=== PATIENT | male | born 1955 | race Caucasian/White ===

== ENCOUNTER 2016-07-28 20:29 | Inpatient (IN) | payer MEDICAID ==
[~2016-07-28] VITALS: Ht 188 cm; Wt 100.2 kg
--- NOTE | 2016-07-28 20:35 | NUR ---
PT BB RA39 FROM HOME. R SHOULDER PAIN S/P "I SLIPPED ON A BANANA & FELL DOWN." MADE PT COMFORTABLE AND SAFETY PRECAUTION IN PLACED. PTPLACED ON MONITOR AFIB 120S MD MADE AWARE. AWAITING ORDERS FROM
[2016-07-28] MEDS ORDERED: ACETAMINOPHEN 325 MG TABLET PO ONE (21:00)
[2016-07-28] MEDS ORDERED: IV NS 0.9% 1,000 ML BAG IV ONE ×2 (21:00)
[2016-07-28 21:22] LABS: BASOPHILS # (AUTO) 0.1 /CMM (0.0-0.2); BASOPHILS % (AUTO) 1.7 % (0.0-2.0); EOSINOPHILS # (AUTO) 0.2 /CMM (0.0-0.7); HEMATOCRIT 34 % (39-51); HEMOGLOBIN 11.8 g/dL (13.5-17.5); LYMPHOCYTES # (AUTO) 1.5 /CMM (0.8-4.8); LYMPHOCYTES % (AUTO) 24.7 % (20.0-44.0); MEAN CORPUSCULAR HEMOGLOBIN 36 PG (26.0-33.0); MEAN CORPUSCULAR HGB CONC 35 g/dl (31.0-36.0); MEAN CORPUSCULAR VOLUME 102 fL (80-96); MONOCYTES # (AUTO) 0.5 /CMM (0.1-1.30); MONOCYTES % (AUTO) 8.1 % (2.0-12.0); NEUTROPHILS # (AUTO) 3.7 /CMM (1.8-8.9); NEUTROPHILS % (AUTO) 62.5 % (43.0-81.0); PLATELET COUNT (AUTO) 52 /CMM (150-450); RDW COEFFICIENT OF VARIATION 12.2 (11.5-15.0); RED BLOOD CELL COUNT(AUTO) 3.28 MIL/uL (4.5-6.0)
[2016-07-28 21:28] LABS: ALCOHOL, BLOOD 14 mg/dL (0-0)
--- NOTE | 2016-07-28 21:28 | NUR ---
PT TAKEN TO CT SCAN VIA [facility]
[2016-07-28 21:31] LABS: INR 1.37 (0.87-1.13); PROTHROMBIN TIME 14.4 SECS (9.5-12.7)
[2016-07-28 21:32] LABS: CALCIUM, SERUM 8.5 mg/dL (8.5-10.1); CARBON DIOXIDE 22 mmol/L (21-32); CHLORIDE 106 mmol/L (98-107); CREATININE 0.9 mg/dL (0.6-1.3); GFR 86 mL/min (>60); GLUCOSE 81 mg/dL (74-106); POTASSIUM 3.5 mmol/L (3.5-5.1); SODIUM SERUM 140 mmol/L (136-145); UREA NITROGEN, BLOOD 16 mg/dL (7-18)
[2016-07-28 21:33] LABS: SERUM AMMONIA 41 umol/L (11-32)
[2016-07-28 21:35] LABS: TROPONIN I < 0.017 ng/mL (0.00-0.056)
[2016-07-28] MEDS ORDERED: IV SET PRIMARY PUMP SET 1 EA INFUS.SET MC ONE ×2 (21:35→22:08)
[2016-07-28] MEDS ORDERED: IV NS 0.9% 2,000 ML ONE (21:35)
[2016-07-28] MEDS ORDERED: ACETAMINOPHEN 325 MG TABLET ONE (21:35)
[2016-07-28 21:42] LABS: EOSINOPHILS % (MANUAL) 2 % (0-4); LACTIC ACID 4.8 mmol/L (0.4-2.0); LYMPHOCYTES % (MANUAL) 28 % (16-48); MONOCYTES % (MANUAL) 8 % (0-11.0); NEUTROPHILS % (MANUAL) 62 (42-76)
[2016-07-28 21:43] LABS: ALANINE AMINOTRANSFERASE 126 U/L (12-78); ALBUMIN 2.8 g/dL (3.4-5.0); ALKALINE PHOSPHATASE 180 U/L (46-116); ANISOCYTOSIS 1+; ASPARTATE AMINOTRANSFERASE 154 U/L (15-37); B-TYPE NATRIURETIC PEPTIDE 1296 PG/ML (0-125); BILIRUBIN,DIRECT 1.1 mg/dL (0.0-0.2); BILIRUBIN,TOTAL 2.5 mg/dL (0.2-1.0); PLATELET ESTIMATE DECREASED; TOTAL PROTEIN, SERUM 6.2 g/dL (6.4-8.2)
--- NOTE | 2016-07-28 21:51 | NUR ---
CALLED NURSING SUP. FOR TELE BED
[2016-07-28] MEDS ORDERED: LACTULOSE 10 G/15 ML UDC (PYXIS) PO ONE (22:00)
[2016-07-28] MEDS ORDERED: VANCOMYCIN 1 GM in IV D5W 250 ML IV ONE (22:00)
[2016-07-28] MEDS ORDERED: MEROPENEM 1 G in IV NS 0.9% 100 ML IV ONE (22:00)
[2016-07-28] MEDS ORDERED: IV NS 0.9% 100 ML IV ONE (22:08)
[2016-07-28] MEDS ORDERED: MEROPENEM 1 G VIAL IV ONE (22:08)
[2016-07-28] MEDS ORDERED: LACTULOSE 10 G/15 ML UDC (PYXIS) ONE (22:11)
[2016-07-28] MEDS ORDERED: SECONDARY IV SET 1 EA INFUS.SET MC ONE ×2 (22:14→22:23)
[2016-07-28] MEDS ORDERED: VANCOMYCIN 1 GM VIAL ONE (22:23)
[2016-07-28] MEDS ORDERED: IV D5W 250 ML IV ONE (22:23)
[2016-07-28] MEDS ORDERED: DILTIAZEM HCL 25 MG IV ONE (22:51)
--- NOTE | 2016-07-28 22:51 | NUR ---
TRIED PAGING [facility] MULTIPLE TIMES, GOT BUSY SIGNAL EVERY TIME, TEXTED AND LEFT MESSAGE ON HIS CELL VOICEMAIL
[2016-07-28] MEDS ORDERED: DILTIAZEM HCL 25 MG IV IV ONE (23:00)
--- NOTE | 2016-07-28 23:00 | NUR ---
GAVE REPORT TO [facility] PT GOING TO ON ROOM 307-2 TELEMETRY.
[2016-07-28] MEDS ORDERED: IV NS 0.9% 1,000 ML ONE (23:21)
[2016-07-28] MEDS ORDERED: IV NS 0.9% 1,000 ML BAG IV SCH (23:30)
[2016-07-28] MEDS ORDERED: ACETAMINOPHEN 325 MG TABLET PO PRN (23:30)
[2016-07-28] MEDS ORDERED: MAGNESIUM HYDROXIDE 30 ML UDC PO PRN (23:30)
[2016-07-28] MEDS ORDERED: ZOLPIDEM TARTRATE 5 MG TABLET PO PRN (23:30)
[2016-07-28] MEDS ORDERED: Thiamine 100 MG in IV D5W 50 ML IV SCH (23:30)
[2016-07-28] MEDS ORDERED: ONDANSETRON HCL/PF 4 MG/2 ML VIAL IVP PRN (23:30)
[2016-07-28] MEDS ORDERED: Z GUARD REMEDY 2 OZ OINT TP PRN (23:30)
[2016-07-28] MEDS ORDERED: Folic acid 1 MG in IV D5W 50 ML IV SCH (23:30)
[2016-07-28] MEDS ORDERED: MAG HYDROX/AL HYDROX/SIMETH 30 ML UDC PO PRN (23:30)
[2016-07-28] MEDS ORDERED: HYDROCODONE/APAP 5/325MG 1 EACH TABLET PO PRN (23:30)
--- NOTE | 2016-07-28 23:30 | NUR ---
TRANSFERRED PATIENT VIA GURNEY VIA ACLS PROTOCOL.
[2016-07-28 23:31] LABS: APPEARANCE,URINE CLEAR (CLEAR); BILIRUBIN,URINE 1+ (NEGATIVE); BLOOD, URINE NEGATIVE Ery/uL (NEGATIVE); KETONES,URINE NEGATIVE (NEGATIVE); LEUKOCYTE ESTERASE ,URINE NEGATIVE (NEGATIVE); NITRITE, URINE NEGATIVE (NEGATIVE); PROTEIN,URINE TRACE mg/dl (NEGATIVE); UGLUCOSE NEGATIVE (NEGATIVE)
[2016-07-28 23:35] VITALS: BP 107/63
[2016-07-28 23:35] LABS: CANNABINOID, URINE NEGATIVE (NEGATIVE); COLOR,URINE DARK YELLOW (YELLOW); PHENCYCLIDINE SCREEN,URINE NEGATIVE (NEGATIVE)
[2016-07-28 23:38] LABS: ADD URINE CULTURE NO; BACTERIA,URINE None seen /HPF (None Seen); MUCUS,URINE Few /LPF (None Seen); RBC,URINE 0-2 /HPF (0-2); SQUAMOUS EPITHELIAL CELL,UR Rare /HPF (None Seen); WBC,URINE 0-2 /HPF (0-3)
--- NOTE | 2016-07-28 23:40 | NUR ---
TELE/RN RECEIVE PATIENT FROM [facility]. PATIENT IS VERY SLEEPY, APPEAR COMFORTABLE, NO SIGNS OF DISTRESS NOTED. UNABLE TO OBTAIN MUCH INFORMATION FROM THE PATIENT THE PATIENT IS VERY SLEEPY AND DOES NOT ANSWER SOME QUESTIONS. PATIENT CONSENTED TO PHYSICAL ASSESSMENT AND PHOTOS TAKEN. MADE COMFORTABLE IN BED, FALL PRECAUTION INSTITUTED. IVF BOLUS INFUSING FROM [facility]. WILL MONITOR.
--- NOTE | 2016-07-28 23:50 | NUR ---
TELE/RN RECEIVED A CALL FROM LAB RE: LACTIC ACID= 2.0. PATIENT IS S/P INITIAL SEPSIS WORK OUT IN [facility].
--- NOTE | 2016-07-29 00:03 | NUR ---
TELE/RN DR. DOMINGUEZ IS HERE, MADE AWARE OF LACTIC ACID RESULT.
[2016-07-29] MEDS ORDERED: ZOLPIDEM TARTRATE 5 MG TABLET ONE (01:28)
[2016-07-29] MEDS ORDERED: Folic acid 1 MG/0.2 ML VIAL ONE (01:51)
[2016-07-29] MEDS ORDERED: Thiamine 100 MG/ML VIAL ONE (01:51)
[2016-07-29] MEDS ORDERED: IV NS 0.9% 1,000 ML ONE (01:56)
[2016-07-29] MEDS ORDERED: SECONDARY IV SET 1 EA INFUS.SET MC ONE ×2 (01:56→05:04)
[2016-07-29] MEDS ORDERED: IV D5W 100 ML IV ONE (01:56)
[2016-07-29 04:00] VITALS: BP 101/64
[2016-07-29] MEDS ORDERED: MEROPENEM 1 G in IV NS 0.9% 100 ML IV SCH (05:00)
[2016-07-29] MEDS ORDERED: MEROPENEM 1 G VIAL IV ONE (05:05)
--- NOTE | 2016-07-29 06:19 | NUR ---
TELE/RN PER PATIENT HE IS UNABLE TO URINATE. DID BLADDER SCAN WITH 485 MLS URINE IN THE BLADDER. NOTIFIED DR. DOMINGUEZ WITH ORDER TO DO STRAIGHT CATH X 1 WAS RECEIVED. STRAIGHT CATH DONE, 650 MLS YELLOW CLEAR URINE WAS OBTAINED.
[2016-07-29] MEDS ORDERED: HYDROCODONE/APAP 5/325MG 1 EACH TABLET ONE (06:44)
[2016-07-29 06:55] VITALS: BP 111/68
--- NOTE | 2016-07-29 07:30 | NUR ---
PT RECEIVED RESTING COMFORTABLY IN BED. NO S/S OR C/O PAIN OR DISTRESS NOTED. SIDE RAILS UP X2, CALL LIGHT LEFT WITHIN REACH. WILL CONTINUE PLAN OF CARE.
--- NOTE | 2016-07-29 07:32 | NUR ---
TELE/RN AWAKE, NO CHANGE IN CONDITION. ALL NEEDS ATTENDED. ENDORSED.
[2016-07-29 08:00] VITALS: BP 106/62
[2016-07-29] MEDS ORDERED: MVI ADULT 10ML VIAL = 1AMP 10 ML in IV NS 0.9% 1,000 ML IV PRN (08:00)
[2016-07-29] MEDS ORDERED: IV NS 0.9% 1,000 ML IV PRN (08:00)
[2016-07-29 08:23] LABS: CALCIUM, SERUM 7.6 mg/dL (8.5-10.1); CREATININE 0.6 mg/dL (0.6-1.3); MAGNESIUM 1.5 mg/dL (1.8-2.4); PHOSPHORUS 4.1 mg/dL (2.5-4.9); POTASSIUM 4.4 mmol/L (3.5-5.1)
[2016-07-29 08:26] LABS: BASOPHILS % (AUTO) 0.4 % (0.0-2.0); EOSINOPHILS # (AUTO) 0.2 /CMM (0.0-0.7); EOSINOPHILS % (AUTO) 5.3 % (0.0-6.0); HEMATOCRIT 32 % (39-51); HEMOGLOBIN 10.7 g/dL (13.5-17.5); LYMPHOCYTES # (AUTO) 1.4 /CMM (0.8-4.8); MEAN CORPUSCULAR HEMOGLOBIN 34 PG (26.0-33.0); MEAN CORPUSCULAR HGB CONC 33 g/dl (31.0-36.0); MEAN CORPUSCULAR VOLUME 104 fL (80-96); MONOCYTES # (AUTO) 0.2 /CMM (0.1-1.30); MONOCYTES % (AUTO) 6.8 % (2.0-12.0); NEUTROPHILS # (AUTO) 1.6 /CMM (1.8-8.9); NEUTROPHILS % (AUTO) 46.5 % (43.0-81.0); RDW COEFFICIENT OF VARIATION 14.1 (11.5-15.0); RED BLOOD CELL COUNT(AUTO) 3.11 MIL/uL (4.5-6.0); WHITE BLOOD COUNT (AUTO) 3.3 K/uL (4.3-11.0)
--- NOTE | 2016-07-29 08:30 | NUR ---
EPIC CALLED LINE BUSY
[2016-07-29] MEDS ORDERED: FEE PK DOSING 1 MIN EA MC ONE (08:36)
[2016-07-29 08:49] LABS: PLATELET COUNT (AUTO) 15 /CMM (150-450)
[2016-07-29 08:54] LABS: EOSINOPHILS % (MANUAL) 3 % (0-4); LYMPHOCYTES % (MANUAL) 35 % (16-48); MONOCYTES % (MANUAL) 5 % (0-11.0); NEUTROPHILS % (MANUAL) 57 (42-76); PLATELET ESTIMATE DECREASED
[2016-07-29 08:55] LABS: ANISOCYTOSIS 1+
[2016-07-29] MEDS ORDERED: MVI-12 10ML IV SCH (09:00)
[2016-07-29] MEDS ORDERED: VANCOMYCIN 1.25 GM in IV D5W 500 ML IV SCH (09:00)
[2016-07-29] MEDS ORDERED: VANCOMYCIN 1 GM in IV D5W 250 ML IV SCH (09:00)
--- NOTE | 2016-07-29 09:00 | NUR ---
EPIC CALLED LINE BUSY
--- NOTE | 2016-07-29 09:09 | NUR ---
WOUND CARE CONSULT: PT PRESENTS WITH LEFT THUMB SKIN TEAR AND MULTIPLE DRY ABRASIONS TO FACE AND BODY, PRESENT ON ADMISSION. PT AMBULATES WITH UNSTEADY GAIT. PT INSTRUCTED TO GET ASSISTANCE WHEN HE NEEDS TO GET OUT OF BED. PT VERBALIZED UNDERSTANDING. WOUND RECOMMENDATIONS DISCUSSED WITH NURSING STAFF. IN AGREEMENT WITH PLAN OF CARE. Addendum: 07/29/16 at 0911 by DAMEON EL WNDNU Amended: Links added.
--- NOTE | 2016-07-29 09:15 | NUR ---
EPIC CALLED LINE BUSY
--- NOTE | 2016-07-29 09:20 | NUR ---
PAGED DR GRIFFITHS RE: EPIC LINE BUSY. GEOLOGICAL SAMPLE TESTER STATED THEY'RE WORKING ON IT.
[2016-07-29] MEDS ORDERED: NEOMY SULF/BACITRAC ZN/POLY 15 GM TUBE TP SCH (09:30)
--- NOTE | 2016-07-29 09:45 | NUR ---
AMA PATIENT REQUESTING TO LEAVE AMA WHILE NOT AWAITING MD ORDERS. INFORMED PATIENT OF RISKS OF LEAVING WHICH INCLUDE BUT ARE NOT LIMITED WORSENING CONDITION AND OR . PATIENT VERBALIZED UNDERSTANDING AND IS CONTINUING WITH DECISION.
== END 2016-07-29 09:00 | disposition left against medical advice (07) | DRG 720 ==
LOC: ER 20:34 → TELE 22:58 → MED 07-29 08:33
PROVIDERS: ADMIT Family Medicine; ATTEND Family Medicine
DX: A41.9 Sepsis, unspecified organism (principal); G93.40 Encephalopathy, unspecified; E87.2 Acidosis; D69.59 Other secondary thrombocytopenia; E44.0 Moderate protein-calorie malnutrition; K70.30 Alcoholic cirrhosis of liver without ascites; I50.9 Heart failure, unspecified; I11.0 Hypertensive heart disease with heart failure; I48.91 Unspecified atrial fibrillation; E56.9 Vitamin deficiency, unspecified; K81.9 Cholecystitis, unspecified; F10.10 Alcohol abuse, uncomplicated; F20.9 Schizophrenia, unspecified; D53.9 Nutritional anemia, unspecified; Z87.891 Personal history of nicotine dependence
CPT/HCPCS: 36415; 70450-TC; 71010-TC; 76705-TC; 80048-TC; 80061-TC; 80076-TC; 80305; 81000-TC; 82140-TC; 82746; 83605-TC; 83690-TC; 83735-TC; 83880; 84100-TC; 84484-TC; 85025-TC; 85730-TC; 87040-TC; 87081-TC; 87086-TC; A4606; G0480; J2185; J3370; J3411; J3490; J7030; J7060; Z7610